=== PATIENT | female | born 1955 ===

== ENCOUNTER 2021-10-04 13:28 | Emergency (ER) | payer MEDICARE, MEDICAID, OTHER ==
[~2021-10-04] VITALS: Ht 162.6 cm; Wt 68.9 kg
[2021-10-04 14:27] VITALS: BP 153/80
[2021-10-04] MEDS ORDERED: ACETAMINOPHEN 500 MG TAB PO ONE (14:45)
== END 2021-10-04 15:26 | disposition home or self-care (01) ==
LOC: EDBD 13:28 → ER 13:28
DX: S29.012A Strain of muscle and tendon of back wall of thorax, initial encounter (principal); S43.401A Unspecified sprain of right shoulder joint, initial encounter; E11.9 Type 2 diabetes mellitus without complications; I10 Essential (primary) hypertension; V43.52XA Car driver injured in collision with other type car in traffic accident, initial encounter; Y93.89 Activity, other specified; Y92.488 Other paved roadways as the place of occurrence of the external cause; Y99.8 Other external cause status
CPT/HCPCS: 71101; 73030